=== PATIENT | female | born 1960 ===

== ENCOUNTER 2017-10-12 07:55 | Day surgery (SDC) | payer OTHER ==
[2017-10-12] MEDS ORDERED: cefTRIAXone 1 gm 1 GM/100 ML BAG IVPB ONE (09:43)
[2017-10-12] MEDS ORDERED: Lidocaine 2% Jelly (Uro-Jet) ONE (09:44)
[2017-10-12] MEDS ORDERED: Iohexol 240 (50 ml) ONE (09:44)
[2017-10-12] MEDS ORDERED: Midazolam 2 MG/2 ML VIAL ONE (09:46)
[2017-10-12] MEDS ORDERED: Propofol 10 mg/ml Inj (20 ML) ONE ×2 (09:47→10:24)
[2017-10-12] MEDS ORDERED: Gentamicin 80 mg in 0.9% NS 80 MG/100 ML BAG IVPB ONE (10:37)
--- NOTE | 2017-10-12 10:37 | PCM.SURG1 ---
Surgeon's Initial Post Op Note - Surgeon's Notes Surgeon: Rene Ellington Accounts Receivable Executive: none Type of Anesthesia: IV Sedation Pre-Operative Diagnosis: R renal calculus Operative Findings: same Post-Operative Diagnosis: same Operation Performed: cysto. R rtg pyelogram. insertion of R ureteral stent Specimen/Specimens Removed: urine Estimated Blood Loss: EBL {In ML}: 0 Blood Products Given: N/A Post-Op Condition: Good Date of Surgery/Procedure: 10/12/17 Time of Surgery/Procedure: 10:30
[2017-10-12] MEDS: HYDROmorphone 0.5 mg/0.5 ml ISec IVP PRN ×2 (11:20→12:05)
[2017-10-12] MEDS ORDERED: Lactated Ringer's 1,000 ML IV ONE (12:45)
[2017-10-12 12:58] VITALS: PULSE 60
[2017-10-12 13:08] VITALS: BP 120/70; RESP 18; TEMP 97.2; O2SAT 100
--- NOTE | 2017-10-12 13:59 | RAD ---
PROCEDURE: Intraoperative Fluoroscopy. HISTORY: RT. RENAL CALCULI FINDINGS: Fluoroscopic assistance was provided for right retrograde, stent placement. Please refer to the operative report from Dr. MEYER, [place]. Total fluoroscopic time (continuous mode) utilized during the procedure 264.2 (seconds). Total exam DLP: (mGy) 3.09
--- NOTE | 2017-10-18 08:42 | OP ---
PROCEDURE DATE: 10/12/2017 PREOPERATIVE DIAGNOSIS: Right renal calculus. POSTOPERATIVE DIAGNOSIS: Right renal calculus. PROCEDURE: Cystoscopy, right retrograde pyelogram, insertion of right ureteral stent. Procedure was performed under fluoroscopic control as well as video endoscopic control. DESCRIPTION OF PROCEDURE: The patient was placed in the lithotomy position. Genitalia were prepped and draped sterilely. Anesthesia was provided by the anesthesiologist. The patient received perioperative antibiotics. A 22-[place] cystoscope sheath was introduced with obturator. Urine was sent for bacteriologic examination. Urethra and bladder were inspected with 30-degree and 70-degree lenses. FINDINGS: There was no bladder tumor. There was no bladder stone. The ureteral orifices were normal in position and shape. [employer] fluoroscopy of the abdomen revealed an oval-shaped, horizontally lying calcification overlying the right renal pelvis. A 0.025-inch guidewire was inserted into the right ureteral orifice and passed up to level of kidney. An open-ended catheter was passed over the guidewire. Iodinated contrast dye was instilled. Retrograde pyelogram demonstrated the calculus has a relative radiolucency, compared to the contrast. The guidewire was reinserted. A 6-[place] Multi-Length stent was inserted over the guidewire. Proper stent position was confirmed with fluoroscopy and endoscopy. The guidewire was removed. The stent was left in place. The bladder was reinspected and confirmed the above findings. The bladder was then drained. Cystoscope and sheath were removed. Exam under anesthesia was performed. There was no abnormal pelvic mass fixation or induration. There was no adnexal mass. The patient tolerated the procedure without complication. Palmira Ellington MD
== END 2017-10-12 13:22 | disposition home or self-care (01) ==
LOC: C.SDS 07:55
PROVIDERS: ATTEND Urology
DX: N20.9 Urinary calculus, unspecified (principal); N20.0 Calculus of kidney
CPT/HCPCS: 52332; 87086; C1758; C1769; C2617; J0696; J1170; J1580; J7120; Q9966